=== PATIENT | female | born 1950 | race Hispanic/Latino ===

== ENCOUNTER 2019-05-09 17:32 | Inpatient (IN) | payer MEDICARE ==
[~2019-05-09] VITALS: Ht 160 cm; Wt 58.3 kg
[2019-05-09 17:00] VITALS: BP 135/60
--- NOTE | 2019-05-09 17:00 | NUR ---
Pt is a direct admit that arrived to the floor at this time. Pt arrive by wheelchair from Dr. Ray office. She is being admitted for right DFU. Pt is aox4 and able to verbalize but mostly armenian speaking. Denies any pain at this time. New IV started to left forearm 20g. Family at the bedside. Dr. Garcia will be attending and has been notified of pt arrival.
--- OUTSIDE RECORDS SUMMARY | 2019-05-09 17:34 | XMS REPORT ---
Author Author Admin, [place] Organization [facility] Address [address] [place] [address] Phone Allergies, Adverse Reactions, Alerts Allergy Name Reaction Description Start Date Severity Status Provider No Known Allergies Jessica Hendrickson REGIONAL DIRECTOR Conditions or Problems Problem Name Problem Code Onset Date Status Entry Date Provider Comment Standard Description Annotate Albuminuria 791.0 Active Jose Cortés MD Proteinuria Alkaline phosphatase, elevated 790.5 Active Jose Cortés MD Other nonspecific abnormal serum enzyme levels cellulitis, toe, right 681.10 Active Jose Cortés MD Cellulitis and abscess of toe, unspecified Diabetic nephropathy 250.40 Active Jose Cortés MD Diabetes mellitus with renal manifestations, type II or unspecified type, not stated as uncontrolled Eosinophilia 288.3 Active Jose Cortés MD Eosinophilia Leukocytosis 288.60 Active Jose Cortés MD Leukocytosis, unspecified Metabolic acidosis 276.2 Active Jose Cortés MD Acidosis Microcytic anemia 280.9 Active Jose Cortés MD Iron deficiency anemia, unspecified Thrombocytosis 238.71 Active Jose Cortés MD Essential thrombocythemia Diabetes mellitus type II, uncontrolled 250.00 Active Jose Cortés MD Diabetes mellitus without mention of complication, type II or unspecified type, not stated as uncontrolled Diabetic foot ulcer, great toe, right 707.15 Active Jose Cortés MD Ulcer of other part of foot Hypertension 401.9 Active Jose Cortés MD Unspecified essential hypertension Onychomycosis 110.1 Active Jose Cortés MD Dermatophytosis of nail Medication List Medication Instructions Start Date Stop Date Generic Name NDC Status Provider Patient Instruction AMOXICILLIN-POT CLAVULANATE 875-125 MG ORAL TABLET 1 tsp by mouth twice a day AMOXICILLIN-POT CLAVULANATE 88053469932 Active Jose Cortés MD Active BACTRIM DS 800-160 MG ORAL TABLET 2 tab by mouth twice a day TRIMETHOPRIM-SULFAMETHOXAZOLE 85047826519 Active Jose Cortés MD Active JANUMET 50-1000 MG ORAL TABLET 1 tablet twice a day SITAGLIPTIN- METFORMIN HCL 88353383093 Active Jose Cortés MD Active Vital Signs Date Name Value Unit Range Description blood pressure, diastolic, second observation 75 mm[Hg] BP page blood pressure, diastolic 75 mm[Hg] BP page blood pressure, systolic, second observation 156 mm[Hg] BP sys blood pressure, systolic 156 mm[Hg] BP sys height E&M 56.89 [in_us] Bdy height pulse rate E&M 87 /min Heart rate pulse rate #2 84 Heart rate respiratory rate E&M 20 /min Resp rate temperature E&M 97.9 [degF] Body temperature weight E&M 112.86 [lb_av] Weight Measured Diagnostic Results Date Name Value Unit Range Description Lab Report: CBC With Differential/Platelet, Comp. Metabolic Panel (14), ... - Chemistry very low density lipoproteins 24 mg/dL 5-40 chloride, serum 96 mmol/L 96-106 urea nitrogen, blood 23 mg/dL 8-27 Lab Report: CBC With Differential/Platelet, Comp. Metabolic Panel (14), ... - Hematology mean corpuscular hemoglobin concentration, RBC 32.1 G/DL % 31.5-35.7 erythrocyte (RBC) count 3.89 X10E6/UL 10*6/mm3 3.77-5.28 Lab Report: CBC With Differential/Platelet, Comp. Metabolic Panel (14), ... - Chemistry Absolute Neutrophils 6.8 X10E3/UL 10*3/uL 1.4-7.0 LDL cholesterol, serum 85 mg/dL 0-99 urea nitrogen/creatinine ratio, serum 25 12-28 Lab Report: CBC With Differential/Platelet, Comp. Metabolic Panel (14), ... - Hematology mean corpuscular volume, RBC 78 fL 79-97 Lab Report: CBC With Differential/Platelet, Comp. Metabolic Panel (14), ... - Chemistry HDL cholesterol, serum 50 mg/dL >39 Lab Report: CBC With Differential/Platelet, Comp. Metabolic Panel (14), ... - Hematology monocytes as percent of blood leukocytes 8 % Not Estab. Lab Report: CBC With Differential/Platelet, Comp. Metabolic Panel (14), ... - Chemistry creatinine, serum 0.91 mg/dL 0.57-1.00 albumin/globulin ratio, serum 0.9 1.2-2.2 cholesterol, serum 159 mg/dL 942-430 2604/08/03 creatinine, random, urine 76.3 mg/dL Not Estab. bilirubin, serum, total 0.3 mg/dL 0.0-1.2 Lab Report: CBC With Differential/Platelet, Comp. Metabolic Panel (14), ... - Hematology Eosinophil Absolute Count 1.3 X10E3/UL 10*3/uL 0.0-0.4 Lab Report: CBC With Differential/Platelet, Comp. Metabolic Panel (14), ... - Chemistry aspartate aminotransferase (SGOT), serum 15 U/L 0-40 Lab Report: CBC With Differential/Platelet, Comp. Metabolic Panel (14), ... - Hematology red blood cell distribution width 14.6 % 12.3-15.4 leukocyte count, blood 12.2 X10E3/UL 10*3/mm3 3.4-10.8 Lab Report: CBC With Differential/Platelet, Comp. Metabolic Panel (14), ... - Chemistry potassium, serum 4.2 mmol/L 3.5-5.2 immature granulocytes, percentage of total cells, blood 0 % Not Estab. albumin, serum 3.7 g/dL 3.6-4.8 Lab Report: CBC With Differential/Platelet, Comp. Metabolic Panel (14), ... - Hematology lymphocyte count, blood, automated 3.1 X10E3/UL 10*3/mm3 0.7-3.1 hematocrit, blood 30.5 % 34.0-46.6 Lab Report: CBC With Differential/Platelet, Comp. Metabolic Panel (14), ... - Chemistry sodium, serum 134 mmol/L 134-144 Lab Report: CBC With Differential/Platelet, Comp. Metabolic Panel (14), ... - Hematology neutrophils as percent of blood leukocytes 55 % Not Estab. basophils as percent of blood leukocytes 1 % Not Estab. Lab Report: CBC With Differential/Platelet, Comp. Metabolic Panel (14), ... - Chemistry carbon dioxide, venous blood 19 mmol/L 20-29 triglyceride, serum, fasting 122 mg/dL 0-149 calcium, serum 9.2 mg/dL 8.7-10.3 microalbumin/creatinine ratio, urine 1230.3 MG/G CREAT ug/mg 0.0-30.0 alanine aminotransferase (SGPT), serum 13 U/L 0-32 Lab Report: CBC With Differential/Platelet, Comp. Metabolic Panel (14), ... - Hematology mean corpuscular hemoglobin, RBC 25.2 pg 26.6-33.0 Office Visit: Acute Visit 68y F DM, diabetic foot wound - Chemistry blood glucose, fasting 136 mg/dL Lab Report: CBC With Differential/Platelet, Comp. Metabolic Panel (14), ... - Chemistry protein, total, serum 7.8 g/dL 6.0-8.5 alkaline phosphatase, serum 148 U/L 39-117 Lab Report: CBC With Differential/Platelet, Comp. Metabolic Panel (14), ... - Hematology hemoglobin, blood 9.8 g/dL 11.1-15.9 lymphocytes as percent of blood leukocytes 25 % Not Estab. Lab Report: CBC With Differential/Platelet, Comp. Metabolic Panel (14), ... - Chemistry hemoglobin A1C, blood, as % of total hemoglobin 9.0 % 4.8-5.6 Lab Report: CBC With Differential/Platelet, Comp. Metabolic Panel (14), ... - Genetics/fertility eGFR if 75 mL/min/1.73m2 >59 Lab Report: CBC With Differential/Platelet, Comp. Metabolic Panel (14), ... - Hematology basophil count, absolute 0.1 x10E3/uL 0.0-0.2 Lab Report: CBC With Differential/Platelet, Comp. Metabolic Panel (14), ... - Chemistry globulin, serum 4.1 1.5-4.5 Estimated Glomerular Filtration Rate (calc) 65 mL/min/1.73m2 >59 Lab Report: CBC With Differential/Platelet, Comp. Metabolic Panel (14), ... - Urinalysis microalbumin/total urine volume 938.7 mg/L Not Estab. Lab Report: CBC With Differential/Platelet, Comp. Metabolic Panel (14), ... - Hematology eosinophils as percent of blood leukocytes 11 % Not Estab. Lab Report: CBC With Differential/Platelet, Comp. Metabolic Panel (14), ... - Chemistry blood glucose, random 132 mg/dL 65-99 Lab Report: CBC With Differential/Platelet, Comp. Metabolic Panel (14), ... - Hematology monocyte count, blood, automated 0.9 X10E3/UL 10*3/uL 0.1-0.9 platelet count 579 X10E3/UL 10*3/mm3 150-450 Encounters Date Encounter Provider Code Facility 11:11:41 CDT New Patient Detailed - [id number] Jose Cortés MD CPT-66992 [facility] Procedures Code Procedure Name Date Entry Date Standard Description CPT-85363 Xray - Foot - 3 Views - InHouse 09:46:56 CDT CPT-09778 HEMOGLOBIN A1C - In House 11:11:41 CDT CPT-65814 Finger Stick Glucose 11:11:41 CDT CPT-12672 Handling of specimen for transfer 11:11:41 CDT CPT-36151 Venipuncture 11:11:41 CDT
[2019-05-09 17:41] VITALS: BP 135/60
[2019-05-09] MEDS ORDERED: PIPER-TAZ 3.375 GM 50 ML IV SCH (18:00)
[2019-05-09] MEDS ORDERED: ACETAMINOPHEN 325 MG TAB PO PRN (18:30)
[2019-05-09] MEDS ORDERED: HYDROCODONE/APAP 5MG-325MG TAB PO PRN (18:30)
--- NOTE | 2019-05-09 19:00 | NUR ---
received report from day nurse. patient is resting comfortably in the bed. bed is in the lowest position and call santos is within reach. will continue to monitor patient.
[2019-05-09 19:11] LABS: BASOPHILS # (AUTO) 0.1 (0.0-0.1); BASOPHILS % 0.8 % (0.0-1.0); EOSINOPHILS # (AUTO) 1.1 (0.0-0.4); EOSINOPHILS % 8.4 % (0.0-6.0); HEMATOCRIT 29.1 % (34.2-44.1); HEMOGLOBIN 9.4 g/dL (12.0-16.0); LYMPHOCYTES # (AUTO) 2.8 (1.0-3.2); LYMPHOCYTES % 21.4 % (18.0-39.1); MEAN CORPUSCULAR HEMOGLOBIN 24.7 pg (28-32); MEAN CORPUSCULAR HGB CONC 32.3 g/dL (31-35); MEAN CORPUSCULAR VOLUME 76.4 fL (81-99); MONOCYTES # (AUTO) 1.2 (0.2-0.8); MONOCYTES % 8.9 % (4.4-11.3); NEUTROPHILS # (AUTO) 7.7 (2.1-6.9); NEUTROPHILS % 59.8 % (38.7-80.0); PLATELET COUNT 548 x10e3/uL (140-360); RED BLOOD COUNT 3.81 x10e6/uL (3.6-5.1); RED CELL DISTRIBUTION WIDTH 14.5 % (11.7-14.4)
[2019-05-09] MEDS ORDERED: DEXTROSE 50% SYRINGE 50 ML IV PRN (19:15)
[2019-05-09] MEDS ORDERED: JANUMET 50-1,01 EACH PO (19:25)
[2019-05-09 19:40] LABS: ALBUMIN/GLOBULIN RATIO 0.5 (0.8-2.0); ANION GAP 20.2 mmol/L (8-16); CALCIUM 9.9 mg/dL (8.4-10.2); CREATININE, SERUM 1.56 mg/dL (0.57-1.11); POTASSIUM 4.2 mmol/L (3.5-5.1)
[2019-05-09 19:56] LABS: CHOL/HDL RATIO 3.7 (3.0-3.6)
[2019-05-09 20:00] VITALS: BP 157/67
[2019-05-09 20:32] VITALS: BP 157/67
[2019-05-09] MEDS: INSULIN LISPRO 100 UNIT/1 ML 3ML VIAL SQ SCH (20:36)
[2019-05-09] MEDS ORDERED: SODIUM CHLORIDE 0.9% 250ML 250 ML ONE (20:43)
[2019-05-09] MEDS: PIPER-TAZ 3.375 GM 50 ML IV SCH (20:56)
[2019-05-09] MEDS: VANCOMYCIN 1GM/NS 250 ML 250 ML IV SCH (21:47)
[2019-05-10] VITALS (10 sets, daily range): BP systolic 126–179; BP diastolic 61–82
--- NOTE | 2019-05-10 02:12 | History and Physical ---
This is a 68-year-old female with a history of diabetes, comes in with diabetic foot ulcer, direct admission from Podiatry for possible debridement. HISTORY OF PRESENTING ILLNESS: Ms. Erma De Guzman who is a 68-year-old female with history of diabetes, was usual state of health until about a month ago, the patient started to have a callus, which she picked on and it became into an ulcer. The patient was seen by her primary care physician, who gave the patient Augmentin about a week ago and the patient continue with that, but the diabetic foot ulcer was getting worse and the patient was seen by and sent to the emergency room for Infectious Disease care and also for possible uncontrolled diabetes and PUD. PAST MEDICAL HISTORY: As mentioned about diabetes mellitus. MEDICATIONS: The only medication she takes is Janumet. No other medications seen. PAST SURGICAL HISTORY: Noncontributory. ALLERGIES: NO DRUG ALLERGIES. REVIEW OF SYSTEMS: Negative for chest pain. No shortness of breath. No nausea, vomiting, or diarrhea. No constipation. No rectal bleeding. No hematochezia. Positive for pain and tenderness in the right foot. The patient has no diplopia, no blurry vision, and no paresthesias or hyperesthesias. PHYSICAL EXAMINATION: GENERAL: The patient is alert and oriented x3, in no acute distress, eating comfortably. VITAL SIGNS: Temperature is 96.7, pulse of 89, respirations of 17, blood pressure is 135/60, and pulse oximetry of 100%. HEENT: Normocephalic and atraumatic. Pupils are reactive to light and accommodation. CVS: S1, S2 normal. Regular rate and rhythm. LUNGS: Clear to auscultation bilaterally. ABDOMEN: Nontender and nondistended. LOWER EXTREMITIES: Left lower extremity, good peripheral pulses. Right lower extremity, slight edema present, otherwise bandaged. The presence of the ulcer is on the right great toe dorsally. Peripheral pulses in the right side. Dorsalis pedis cannot be felt at this time, but posterior tibial strong pulses present. LABORATORY VALUES: None done at this point of time. CBC and blood cultures x2 has been done. Hemoglobin A1c is done. We will go and order a lipid panel on her [address] Moody and also Infectious Disease has been ordered. The patient is currently on hydrocodone for pain control, acetaminophen for fever control, vancomycin and Zosyn have been started q.12 and q.6 hours. Further recommendation per clinical course. We will continue to monitor the patient. A1c, lipids, and also kidney functions will be assessed. We will continue to monitor the patient along with consultants and further recommendation per clinical course. MD CRISTY Hercules/NEIL /[id number]
[2019-05-10] MEDS: PIPER-TAZ 3.375 GM 50 ML IV SCH ×3 (02:35→12:58)
[2019-05-10 05:34] LABS: BASOPHILS # (AUTO) 0.1 (0.0-0.1); BASOPHILS % 0.9 % (0.0-1.0); EOSINOPHILS % 8.7 % (0.0-6.0); HEMATOCRIT 24.8 % (34.2-44.1); LYMPHOCYTES # (AUTO) 2.2 (1.0-3.2); LYMPHOCYTES % 19.1 % (18.0-39.1); MEAN CORPUSCULAR HEMOGLOBIN 24.6 pg (28-32); MEAN CORPUSCULAR HGB CONC 32.3 g/dL (31-35); MEAN CORPUSCULAR VOLUME 76.3 fL (81-99); MONOCYTES # (AUTO) 0.9 (0.2-0.8); MONOCYTES % 7.8 % (4.4-11.3); NEUTROPHILS # (AUTO) 7.2 (2.1-6.9); PLATELET COUNT 424 x10e3/uL (140-360); RED BLOOD COUNT 3.25 x10e6/uL (3.6-5.1); RED CELL DISTRIBUTION WIDTH 14.3 % (11.7-14.4)
[2019-05-10 05:57] LABS: ANION GAP 15.6 mmol/L (8-16); CREATININE, SERUM 1.4 mg/dL (0.57-1.11); POTASSIUM 4.6 mmol/L (3.5-5.1)
--- NOTE | 2019-05-10 06:54 | NUR ---
report given to day nurse. patient is resting comfortably in bed. bed is in lowest position and call light is within reach.
[2019-05-10] MEDS: INSULIN LISPRO 100 UNIT/1 ML 3ML VIAL SQ SCH ×4 (07:30→20:51)
--- NOTE | 2019-05-10 07:45 | NUR ---
Pt received in bed. aox4 and able to verbalize needs. Denies any pain at this time. Dressing to right foot is dry and intact. Pt is mostly japanese speaking.
[2019-05-10] MEDS: VANCOMYCIN 1GM/NS 250 ML 250 ML IV SCH (08:39)
--- NOTE | 2019-05-10 08:50 | NUR ---
Received call from Dr. Patel and receive orders to obtain informed consent for debridement to right foot ulcer. Procedure will be done on 05/11/19 at 0700. Also received orders for CXR.
--- NOTE | 2019-05-10 11:01 | Diagnostic Imaging Report ---
EXAMINATION: CHEST SINGLE (PORTABLE) INDICATION: Infection COMPARISON: None FINDINGS: LINES/TUBES:None LUNGS:The lungs are well-inflated. No focal consolidation or pulmonary edema. PLEURA:No pleural effusion or pneumothorax. MEDIASTINUM:The cardiomediastinal silhouette appears normal in size and shape. Atherosclerotic calcifications of the thoracic aorta. BONES/SOFT TISSUES:Degenerative/posttraumatic changes of the partially visualized left proximal humerus. ABDOMEN:No free air under the diaphragm. IMPRESSION: No focal pneumonia or pulmonary edema. Signed by: Jesika Tavarez MD on 05/10/2019 10:58 AM
--- NOTE | 2019-05-10 14:48 | Diagnostic Imaging Report ---
TECHNIQUE: Magnetic resonance imaging of the RIGHT foot was performed WITHOUT injected contrast. HISTORY: Pain COMPARISON: None available. DISCUSSION: Soft tissue ulceration of the level of the interphalangeal joint of the hallux and metatarsophalangeal joint of the hallux with ill-defined soft tissue abscess surrounding the adjacent osseous structures. Abscess extends over the proximal phalanx of the second toe. Bone marrow edema and T1 replacement throughout the phalanges of the hallux. Mild subcortical bone marrow edema involving the first and second metatarsals and second proximal phalanx. Generalized soft tissue swelling and edema of the foot. IMPRESSION: 2 regions of soft tissue ulceration with sinus tract and soft tissue abscess of the distal forefoot. Osteomyelitis of the phalanges of the hallux with interphalangeal joint septic arthritis. Probable osteomyelitis of the first and second metatarsal heads and second proximal phalanx. Signed by: Dr. Tomer Murdock M.D. on 05/10/2019 2:45 PM
--- NOTE | 2019-05-10 16:24 | NUR ---
WOUND CARE NURSE INITIAL CONSULTATION. 68 YEAR OLD FEMALE ADMITTED TO [facility] WITH WAGNERS3 DIABETIC FOOT ULCER, PVD AND CELLULITIS. HEAD TO TOE SKIN ASSESSMENT PERFORMED TODAY. MULTIPLE DIABETIC FOOT ULCERS TO RIGHT 1ST MET HEAD AND RIGHT HALLUX THEY ARE PROBABLY CONNECTED, UNABLE TO PROBE DUE TO PAIN. ULCERS MEASURED TOGETHER ARE APPROXIMATELY 4.2X3X1.3CM. 100% SLOUGH. MODERATE PURULENT DRAINAGE IS PRESENT. PALPABLE PULSES. CELLULITIS AND EDEMA IS ALSO PRESENT. SPOKE WITH DR. JACOBSON, PT WILL UNDERGO SURGICAL DEBRIDEMENT TOMORROW. ORDERS TO APPLY BETADINE WET TO DRY DRESSING TODAY. PT IS AMBULATORY AND HAS PILLOW SUSPENSIONS IN PLACE. LABS: WBC: 11.43 HGBA1C: 8.5 GLUCOSE: 11 ALB: 3.0 BLOOD AND WOUND CX RESULTS ARE PENDING. WILL CONTINUE TO FOLLOW UP WITH PT AFTER SURGERY. Addendum: 05/10/19 at 1633 by Shawanda Patrick RN Amended: Links added.
[2019-05-10] MEDS: CEFEPIME 1GM/NS 0.9% 50 ML 50 ML IV SCH (16:59)
--- NOTE | 2019-05-10 17:17 | Consultation ---
DATE OF CONSULTATION: REASON FOR CONSULTATION: Infection of the foot, failing medical treatment. HISTORY OF PRESENT ILLNESS: This patient, who is a 68-year-old very pleasant female with history of diabetes mellitus, history of neuropathy, history of chronic kidney disease, history of anemia of chronic disease, comes into the hospital because she have a right foot ulcer, which she has been dealing with for at least a month. She took several courses of oral antibiotic without any improvement. There is redness and swelling. She does have a foot also affecting her right big toe. The patient is being admitted for IV antibiotic and possible surgical debridement. The patient has no complaints at the present time. Her family at the bedside. REVIEW OF SYSTEMS: At the present time; HEENT: Negative. PULMONARY: Negative. CARDIAC: Negative. : Negative. GI: Negative. SKIN: There is no other rash. A 14-point system reviewed with the patient, all negative. Her son at the bedside provide also additional information. MEDICATION LIST: Reviewed. She is currently on vancomycin, Zosyn, acetaminophen, and insulin. SOCIAL HISTORY: There is no smoking, drug abuse, or alcohol abuse. FAMILY HISTORY: Diabetes mellitus. LABORATORY DATA: White count is 11.4, hemoglobin 8, and platelets 424. Her BUN 31, creatinine 1.40. PHYSICAL EXAMINATION: GENERAL: She is currently alert, oriented, does not seem to be in acute distress. VITAL SIGNS: Stable, currently afebrile. HEENT: Normocephalic, not icteric. NECK: Supple. No JVD. No carotid bruits. No thyromegaly. CHEST: Clear bilateral. COR: S1, S2. No murmur. ABDOMEN: Soft. EXTREMITIES: The foot, there is redness and swelling. There is edema. There is an ulcer noted on the big toe. The ulcer is deep subcutaneous tissue. IMPRESSION: 1. Infection of the foot, concerned about osteomyelitis. Concerned about peripheral vascular disease. Our recommendation to change her vancomycin to 1 g q.24. We will start cefepime 1 g q.12. Discontinue Zosyn. Obtain vancomycin trough with the 3rd dose. Obtain Vascular workup. Obtain MRI of the foot without contrast to rule out osteo. 2. Chronic kidney disease. 3. Anemia. Workup per Internal Medicine. 4. We will follow with you. MD GIA Pires/NEIL /[id number]
[2019-05-10] MEDS ORDERED: CEFEPIME HCL 1 GM VIAL IV SCH (18:00)
--- NOTE | 2019-05-10 18:32 | Progress Note ---
DATE: SUBJECTIVE: The patient is a 68-year-old female with a history of foot ulcer. The patient is currently on IV antibiotics. Currently has no symptoms. No pain. Wound Care under consult at this time. OBJECTIVE: VITAL SIGNS: Temperature is 97.4, pulse of 93, respirations 17, and blood pressure is 137/62. HEENT: Normocephalic and atraumatic. Pupils are reactive to light and accommodation. CVS: S1 and S2 normal. Regular rate and rhythm. ABDOMEN: Nontender and nondistended. EXTREMITIES: No clubbing, no cyanosis, and no edema. The patient's lower extremity with good pulses. Right lower extremity with ulceration on the great toe. Peripheral pulses are present. Dorsalis pedis present. There is a moderate amount of eschar present there too. LABORATORY VALUES: WBC is 11.43, hemoglobin of 8, and hematocrit of 24.8. Sodium is 128, potassium is 4.6, BUN of 31, and creatinine of 1.40. ASSESSMENT: 1. Right lower extremity diabetic foot ulcer. 2. Uncontrolled diabetes. 3. Hypertension. 4. Hyperlipidemia. 5. Leukocytosis. 6. Chronic kidney disease. 7. Hyponatremia at this time. PLAN: Continue monitoring the lytes. Leukocytosis to be monitored. Continue on antibiotics. The patient is currently on vancomycin and cefepime. She is currently on renal doses. Further recommendation and clinical course, we will continue to monitor the patient and consultants are on board. MD CRISTY Hercules/MODL /[id number]
--- NOTE | 2019-05-10 20:30 | NUR ---
patients blood pressure is elevated. MD notified. received new order for clonidine 0.1mg prn q6 hours for elevated blood pressure. Upon entering room with medication, patients son states he does not want his mother to take the blood pressure medication. son states if mother takes the blood pressure medication she will get more worried and anxious about her condition. son was educated on the importance of controlling blood pressure. Son understands importance of keeping blood pressure under control. MD notified of sons response to blood pressure medication. Will continue to monitor patients blood pressure.
--- NOTE | 2019-05-10 20:43 | NUR ---
patients blood pressure is 179/82. paged. awaiting call back from physician.
[2019-05-11] VITALS (8 sets, daily range): BP systolic 120–177; BP diastolic 55–79
--- NOTE | 2019-05-11 01:43 | Consultation ---
DATE OF CONSULTATION: 05/10/2019 Cardiology Consult Note REASON FOR CONSULT: Right lower extremity ulcer. CHIEF COMPLAINT: Right lower extremity ulcer. HISTORY OF PRESENT ILLNESS: The patient is a 68-year-old female with history of diabetes, hypertension, hyperlipidemia, and CAD, who presents with cellulitis and ulcer of her right lower extremity. Arterial Doppler showed [id number] severe PAD in her right lower extremity. The patient denies any previous catheterizations or procedure, otherwise just wants some wound care and wants to go home, is not wanting to stay in the hospital. PAST MEDICAL HISTORY: 1. Hypertension. 2. Hyperlipidemia. 3. Diabetes. SOCIAL HISTORY: She does not smoke, drink, or abuse drugs. FAMILY HISTORY: Noncontributory. MEDICATIONS: Please see MAR. OBJECTIVE: VITAL SIGNS. Temperature afebrile, hemodynamically stable, saturating 98% on room air. GENERAL: Middle-aged female, in no acute distress. CARDIOVASCULAR: Regular rate and rhythm. No murmurs, rubs, or gallops. LUNGS: Clear to auscultation bilaterally. ABDOMEN: Soft, nontender, and nondistended. NEURO AND PSYCH: Alert and oriented to person, place, and time. Normal affect. Right lower extremity bandage in place. Has ulcer on her right great toe and foot. INPATIENT MEDICATIONS: Reviewed. LABORATORY DATA: Reviewed. TELEMETRY DATA: Reviewed. ASSESSMENT AND PLAN: 1. Right diabetic foot ulcer. 2. Peripheral arterial disease with critical limb ischemia. PLAN: Had a long discussion with the patient and her son regarding peripheral angiography and intervention to help with wound healing. However, they are very reluctant and said that they do not want any procedures, they just want some wound care and want to go home. I explained to the patient the risk of amputation and nonhealing chronic diabetic wound including sepsis and and they said they understand, however, they are not interested in doing any procedures. We will sign off at this point. Please call back if they change their mind regarding getting peripheral angiography and intervention for right lower extremity. Thank you for this consult. MD KARINE Batista/NEIL /[id number]
[2019-05-11] MEDS: CEFEPIME 1GM/NS 0.9% 50 ML 50 ML IV SCH ×2 (05:13→17:05)
[2019-05-11 05:59] LABS: BASOPHILS # (AUTO) 0.1 (0.0-0.1); BASOPHILS % 0.7 % (0.0-1.0); EOSINOPHILS # (AUTO) 1.8 (0.0-0.4); EOSINOPHILS % 14.4 % (0.0-6.0); HEMATOCRIT 26.7 % (34.2-44.1); HEMOGLOBIN 8.7 g/dL (12.0-16.0); LYMPHOCYTES # (AUTO) 2.7 (1.0-3.2); LYMPHOCYTES % 21.5 % (18.0-39.1); MEAN CORPUSCULAR HEMOGLOBIN 25.1 pg (28-32); MEAN CORPUSCULAR HGB CONC 32.6 g/dL (31-35); MEAN CORPUSCULAR VOLUME 76.9 fL (81-99); MONOCYTES % 8.3 % (4.4-11.3); NEUTROPHILS # (AUTO) 6.8 (2.1-6.9); NEUTROPHILS % 54.5 % (38.7-80.0); PLATELET COUNT 460 x10e3/uL (140-360); RED BLOOD COUNT 3.47 x10e6/uL (3.6-5.1); RED CELL DISTRIBUTION WIDTH 14.4 % (11.7-14.4)
[2019-05-11 06:16] LABS: ANION GAP 15.4 mmol/L (8-16); CALCIUM 9.4 mg/dL (8.4-10.2); CREATININE, SERUM 1.29 mg/dL (0.57-1.11); POTASSIUM 4.4 mmol/L (3.5-5.1)
[2019-05-11] MEDS ORDERED: BACITRACIN 50,000 UNIT VIAL ONE ×2 (06:24→06:45)
[2019-05-11] MEDS ORDERED: BUPIVACAINE HCL 0.5% INJ 30 ML VIAL INJ ONE (06:24)
--- NOTE | 2019-05-11 06:30 | NUR ---
patient has been transported to operating room for planned procedure on right foot. patient left unit awake and talking in stretcher accompanied by 2 operating room staff members.
--- NOTE | 2019-05-11 06:52 | NUR ---
RECEIVED REPORT FROM PIG MACHINE CRANE OPERATOR NURSE. PATIENT IS CURRENTLY IN THE OR FOR PROCEDURE.
[2019-05-11] MEDS: INSULIN LISPRO 100 UNIT/1 ML 3ML VIAL SQ SCH ×4 (07:30→20:03)
--- NOTE | 2019-05-11 08:04 | NUR ---
PATIENT BACK TO ROOM FROM OR AT THIS TIME.
[2019-05-11] MEDS: CLONIDINE HCL 0.1 MG TAB PO PRN (08:30)
[2019-05-11 08:38] LABS: BAND NEUTROPHILS % (MANUAL) 2 %; EOSINOPHILS % (MANUAL) 13 % (0-7); LYMPHOCYTES % (MANUAL) 14 % (19-48); MONOCYTES % (MANUAL) 8 % (3.4-9.0); NEUTROPHILS % (MANUAL) 61 % (40-74)
[2019-05-11 08:39] LABS: ANISOCYTOSIS SLIGHT; PLATELET ESTIMATE SLIGHTLY INCREASED; PLATELET MORPHOLOGY COMMENT NORMAL; POIKILOCYTOSIS SLIGHT; RBC MORPHOLOGY COMMENT NORMAL
[2019-05-11] MEDS: VANCOMYCIN 1GM/NS 250 ML 250 ML IV SCH (09:03)
--- NOTE | 2019-05-11 10:22 | NUR ---
EDUCATED ABOUT IMM, SIGNED, FILED IN CHART, WITH COPY LEFT WITH FAMILY AT BEDSIDE.
--- NOTE | 2019-05-11 11:46 | Progress Note ---
DATE: SUBJECTIVE: The patient is a 68-year-old female, who comes in with right lower extremity diabetic foot ulcer. The patient is currently scheduled to be taken down to the OR for debridement. Currently on cefepime and vancomycin. The patient is also getting rosiglitazone for her diabetes. The patient is also on insulin sliding scale. No complaints noted by the family of the patient. OBJECTIVE: VITAL SIGNS: Blood pressure is 151/67, temperature is 97.6. The patient's blood pressure also elevated to 165/71. No blood pressure medicine has been given to the patient. This has been raised in concern with the family. The patient's family does not want to have blood pressure medications at this time. HEENT: Normocephalic and atraumatic. Pupils are reactive to light and accommodation. CVS: S1 and S2 normal. Regular rate and rhythm. ABDOMEN: Nontender and nondistended. EXTREMITIES: Right lower extremity in a bandage. Ulcerations seen from yesterday and is scheduled for debridement. LABORATORY VALUES: Today's white count is 12,000, hemoglobin of 8.7, and hematocrit of 26.7. Chemistry; sodium of 134, potassium of 4.4, BUN of 28, creatinine of 1.29. Microbiology, no growth. Wound culture, preliminary culture in progress re-incubation and blood cultures negative so far. ASSESSMENT: 1. Right lower extremity diabetic foot ulcer. 2. Uncontrolled diabetes. 3. Hypertension. 4. Hyperlipidemia. 5. Leukocytosis. 6. Anemia of chronic disease. 7. Chronic kidney disease. PLAN: Plan for debridement today. Continue with IV antibiotics. PICC line will be needed and Dr. Wilson was on consult. Further recommendation per clinical course. We will continue to monitor the patient along with consultants including Dr. Patel for Podiatry. MD CRISTY Hercules/MODL /[id number]
--- NOTE | 2019-05-11 12:01 | Operative Report ---
DATE OF PROCEDURE: SURGEON: Beronica Jordan DPM PREOPERATIVE DIAGNOSES: 1. Right diabetic foot ulcer, grade 3. 2. Septic joint. 3. Diabetes with neuropathy. 4. Severe peripheral vascular disease. POSTOPERATIVE DIAGNOSES: 1. Right diabetic foot ulcer, grade 3. 2. Septic joint. 3. Diabetes with neuropathy. 4. Severe peripheral vascular disease. PROCEDURES: 1. Incision and debridement to bone. 2. Irrigation of the septic joint, which was sensitivities of the IPJ. DIRECTOR OF VOCATIONAL GUIDANCE: None. ANESTHESIA: MAC with a local. ESTIMATED BLOOD LOSS: Less than 10 mL. MATERIALS: Pulse hand slitter. COMPLICATIONS: None. PROCEDURE IN DETAIL: Under mild sedation, the patient was brought to the operating room, placed on the operating table in supine position. Following IV sedation, anesthesia was obtained with a MAC anesthetic and a local block into the right foot. The foot scrubbed, prepped, and draped in the usual aseptic manner. Attention was then directed to the IPJ joint and the MPJ joint and the interspace of the 1st, where linear incision was made overlying the area of the abscess. The incision was deepened down to the level of the bone, it was noted to be purulent coming from the IPJ and the ulcers that was tracking down into the 2nd MPJ. At this point, utilizing the combination of a #15 blade, a bone rongeur and a curette, all nonviable tissue was removed. Cultures and sensitivity were taken after irrigation of the IPJ of the bone. Utilizing pressure irrigation, irrigation was performed to the areas of abscesses after they were drain with copious irrigation with bacitracin. Clean dressing was applied consisting of Betadine. Wet-to-dry, 4x4s, Kerlix, and an Johnnie bandage. The patient tolerated the procedure, she will be readmitted back into the hospital. At this point, the prognosis is poor. She denied treatment from Vascular. She had a minimal vascularity to the lower extremity. I discussed with them that if the wound does not respond, she is going to need a proximal amputation because she is not going to heal a distal amputation secondary to the comorbidities and vascularities. I will continue to follow. Beronica Jordan DPM ER/MODL /[id number]
--- NOTE | 2019-05-11 14:06 | Consultation ---
DATE OF CONSULTATION: REASON FOR CONSULTATION: This is a patient, who came into my office on Thursday May 09, 2019, for evaluation of a wound. She said she has had the wound for over a couple of months. She does not have a PCP. She has been going to different clinics and obtaining oral antibiotic. When she presented to my office, the wound was draining, there was malodor. PAST MEDICAL HISTORY: Diabetes mellitus, history of noncompliance, PVD, and neuropathy. PAST SURGICAL HISTORY: Denies. MEDICATIONS: Please see MAR. Of interest to this consult are cefepime and vancomycin. ALLERGIES: NO KNOWN ALLERGIES. REVIEW OF SYSTEMS: Ulcer to the right foot to the joint. LABORATORY DATA: Her white blood count is 12.49, is trending down, she started at 12.90. The wound cultures are growing with the preliminary. The blood cultures are negative at 24 hours, they are also preliminary. The MRI is positive for two regions of distal ulcerations with sinus tracts and soft tissue abscess at the distal forefoot, osteomyelitis of the phalanges of the hallux with interphalangeal joint and septic arthritis, probable osteomyelitis of the 1st and 2nd metatarsal heads and 2nd IPJ, and proximal phalanx. PHYSICAL EXAMINATION: Pedal pulses not palpable. Capillary filling time is delayed. Skin is thin, shiny, and atrophic. There is no pedal hair growth. There is full-thickness ulcer to the medial aspect of the IPJ and another one to 1st MPJ. The 3rd ulcer is at the lateral aspect of the IPJ and at the dorsal aspect of the 2nd MPJ. The ulcers are down to the bone, they draining purulent, erythema, and edema. The erythema and edema goes to about the mid foot. Protective threshold is absent. 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 ASSESSMENT: 1. Diabetic foot ulcer, grade 3. 2. Septic joint IPJ. 3. Diabetes with neuropathy and peripheral vascular disease. 4. History of noncompliance. PLAN: I discussed treatment with the patient. We discussed with Surgery to irrigate that joint. She is scheduled for surgery today, she has been n.p.o. I also reviewed with them Vascular consult, they have denied Vascular at this point. I have discussed with them that according to the report, she has compromised vascularity right to below the knee. She has refused intervention, but without intervention she has a very high risk for proximal amputation and I have discussed this with them in detail today. I discussed with the son and the patient states that at this point, they really do not want to do anything, they just want to do the local wound care, but they are going to think about it over the weekend. If this wound does not respond, she is going to need a proximal amputation and distal amputation when healed secondary to the poor vascularity and comorbidities. She is on IV antibiotics and I will continue to follow. LACIE Fitzpatrick/NEIL /[id number]
[2019-05-11] MEDS ORDERED: LIDOCAINE HCL 2% LOCAL INJ 5 ML SDV VIAL INJ ONE (18:37)
[2019-05-11] MEDS ORDERED: PROPOFOL IV EMULSION 10 MG/ML 20 ML VIAL ONE (18:37)
[2019-05-11] MEDS ORDERED: MIDAZOLAM HCL 2 MG/2 ML VIAL ONE (18:56)
[2019-05-11] MEDS ORDERED: FENTANYL CITRATE/PF 100MCG/2 ML INJ ONE (18:56)
--- NOTE | 2019-05-11 18:59 | NUR ---
REPORT GIVEN TO ONCOMING NURSE. WALKING ROUNDS DONE. PATIENT IS SITTING UP IN CHAIR. NO ACUTE DISTRESS NOTED. CALL LIGHT WITHIN REACH. BED IN THE LOWEST POSITION.
[2019-05-12] VITALS (7 sets, daily range): BP systolic 117–173; BP diastolic 58–78
[2019-05-12] MEDS: CEFEPIME 1GM/NS 0.9% 50 ML 50 ML IV SCH ×2 (05:06→17:08)
[2019-05-12 06:26] LABS: BASOPHILS # (AUTO) 0.1 (0.0-0.1); BASOPHILS % 0.6 % (0.0-1.0); EOSINOPHILS # (AUTO) 1.8 (0.0-0.4); EOSINOPHILS % 12.9 % (0.0-6.0); HEMATOCRIT 26.4 % (34.2-44.1); HEMOGLOBIN 8.4 g/dL (12.0-16.0); LYMPHOCYTES # (AUTO) 2.6 (1.0-3.2); LYMPHOCYTES % 18.7 % (18.0-39.1); MEAN CORPUSCULAR HEMOGLOBIN 24.6 pg (28-32); MEAN CORPUSCULAR HGB CONC 31.8 g/dL (31-35); MEAN CORPUSCULAR VOLUME 77.4 fL (81-99); MONOCYTES % 7.3 % (4.4-11.3); NEUTROPHILS # (AUTO) 8.4 (2.1-6.9); NEUTROPHILS % 59.8 % (38.7-80.0); PLATELET COUNT 439 x10e3/uL (140-360); RED BLOOD COUNT 3.41 x10e6/uL (3.6-5.1); RED CELL DISTRIBUTION WIDTH 14.3 % (11.7-14.4)
[2019-05-12 06:52] LABS: ANION GAP 13.4 mmol/L (8-16); BLOOD UREA NITROGEN 24 mg/dL (7-26); BUN/CREATININE RATIO 27 (6-25); CARBON DIOXIDE 22 mmol/L (22-29); CHLORIDE 101 mmol/L (98-107); EST GLOMERULAR FILTRATION RATE > 60 ML/MIN (60-); GLUCOSE 108 mg/dL (74-118); POTASSIUM 4.4 mmol/L (3.5-5.1); SODIUM 132 mmol/L (136-145)
--- NOTE | 2019-05-12 06:56 | NUR ---
RECEIVED PATIENT RESTING IN BED. NO ACUTE DISTRESS NOTED. DENIES PAIN OR DISCOMFORT AT THIS TIME. CALL LIGHT WITHIN REACH. BED IN THE LOWEST POSITION.
[2019-05-12 07:05] LABS: ANISOCYTOSIS SLIGHT; EOSINOPHILS % (MANUAL) 16 % (0-7); LYMPHOCYTES % (MANUAL) 21 % (19-48); MICROCYTOSIS SLIGHT; MONOCYTES % (MANUAL) 3 % (3.4-9.0); NEUTROPHILS % (MANUAL) 59 % (40-74); RBC MORPHOLOGY COMMENT ABNORMAL
[2019-05-12 07:06] LABS: PLATELET ESTIMATE SLIGHTLY INCREASED; PLATELET MORPHOLOGY COMMENT NORMAL
[2019-05-12] MEDS: INSULIN LISPRO 100 UNIT/1 ML 3ML VIAL SQ SCH ×4 (07:30→20:02)
[2019-05-12] MEDS: SODIUM CHLORIDE 0.9% 1000ML 1,000 ML IV SCH ×2 (07:35→20:03)
--- NOTE | 2019-05-12 07:36 | Progress Note ---
DATE: SUBJECTIVE: The patient is status post incision and debridement to the bone and irrigation of septic joint with Podiatry. Currently asymptomatic. Pain is controlled. No chest pains. No shortness of breath. No nausea, vomiting, or diarrhea. The patient went well through the night without any problems. OBJECTIVE: VITAL SIGNS: Temperature is 97.8, pulse of 92, respirations of 16, and blood pressure is 134/74. HEENT: Normocephalic and atraumatic. Pupils are reactive to light and accommodation. CVS: S1 and S2 normal. Regular rate and rhythm. EXTREMITIES: Right lower extremity is in bandage. The patient has good peripheral pulses. LABORATORY VALUES: 1. Gram stain shows Staph aureus, moderate. 2. White count of 14,000, hemoglobin of 8.4, and hematocrit of 26.4. Chemistry shows sodium 132, potassium is 4.4. 3. Microbiology as mentioned staph aureus. MEDICATIONS: The patient is on cefepime, vancomycin, and insulin for sliding scale. ASSESSMENT AND PLAN: 1. Plan is to continue on antibiotics. The patient needs an LTAC at this time, the patient is refusing to go to an LTAC. The patient will need IV antibiotics, this has been reinstated to the family and to the patient and they will think about it, also cellulitis and septic joint. 2. Uncontrolled diabetes mellitus with neuropathy. 3. Hyperlipidemia. 4. Leukocytosis. 5. Chronic kidney disease. 6. Anemia of chronic disease. PLAN: Continue with IV antibiotics. DVT prophylaxis with SCDs will be done. Further recommendation per clinical course. We will discuss with the family and further care and plan for the patient. MD CRISTY Hercules/ELVIAL /[id number]
[2019-05-12] MEDS: VANCOMYCIN 1GM/NS 250 ML 250 ML IV SCH (08:00)
[2019-05-12] MEDS: CLONIDINE HCL 0.1 MG TAB PO PRN (11:22)
--- NOTE | 2019-05-12 11:30 | NUR ---
PATIENT REFUSING INSULIN.
--- NOTE | 2019-05-12 14:30 | NUR ---
PATIENT REFUSING MD NORAH NOTIFIED.
--- NOTE | 2019-05-12 17:49 | NUR ---
PAGED DR. GRANDA TO ASK ABOUT WHEN DRESSING WILL BE OPEN DUE TO PATIENT ASKING. DR. STEARNS CALLED BACK AND STATED TO WAIT UNTIL DR. GRANDA ROUNDS ON TUESDAY AND ASK HER THEN.
--- NOTE | 2019-05-12 18:03 | Progress Note ---
DATE: SUBJECTIVE: Ms. De Guzman is doing well. No complaints. REVIEW OF SYSTEMS: HEENT: Negative. PULMONARY: Negative. CARDIAC: Negative. : Negative. Her son is at the bedside. PHYSICAL EXAMINATION: GENERAL: She is currently alert and oriented, does not seem to be in acute distress. VITAL SIGNS: Stable, currently afebrile. HEENT: Normocephalic, not icteric. NECK: Supple. No JVD. No lymphadenopathy. No thyromegaly. CHEST: Clear bilateral. HEART: S1 and S2. No S3, S4, or murmur. ABDOMEN: Soft. Bowel sounds present. No tenderness. EXTREMITIES: No edema. The foot dressing is dry. LABORATORY DATA: Her cultures showing Staph aureus and E coli from the 7. The E coli was pretty much pansensitive and the staph was also MSSA. MEDICATIONS: She is on vancomycin and cefepime. IMPRESSION: 1. Osteomyelitis of the foot. 2. Diabetes mellitus. 3. The patient is refusing to go to an LTAC or SNF. The patient would like to go home. However, she cannot afford her IV antibiotics. She would like to go home with oral antibiotic, even though she may end up losing her leg, she understands that. 4. Diabetes mellitus with neuropathy. 5. Hyperlipidemia. 6. Chronic kidney disease. 7. Anemia of chronic disease. I am going to wait on the of Staph aureus cultures, which is coming from the , still sensitive pending before I change her antibiotic. Discussed with the son at length. MD GIA Pires/NEIL /[id number]
--- NOTE | 2019-05-12 18:58 | NUR ---
Report given to oncoming nurse. Walking rounds done. Patient is resting in bed. No acute distress noted. Denies pain or discomfort at this time. Call light within reach. Bed in the lowest position.
[2019-05-13] VITALS (9 sets, daily range): BP systolic 143–177; BP diastolic 60–84
[2019-05-13] MEDS: CEFEPIME 1GM/NS 0.9% 50 ML 50 ML IV SCH ×2 (05:15→17:20)
--- NOTE | 2019-05-13 06:58 | NUR ---
Received patient resting in bed. No acute distress noted. Denies pain or discomfort at this time. Call light within reach. Bed in the lowest position.
[2019-05-13] MEDS: INSULIN LISPRO 100 UNIT/1 ML 3ML VIAL SQ SCH ×4 (07:30→21:00)
--- NOTE | 2019-05-13 07:30 | NUR ---
PATIENT STILL REFUSING ACCUCHECKS AND INSULIN.
[2019-05-13] MEDS: VANCOMYCIN 1GM/NS 250 ML 250 ML IV SCH (08:13)
--- NOTE | 2019-05-13 09:46 | Progress Note ---
DATE: SUBJECTIVE: The patient is a 68-year-old female, who came in with a right diabetic foot ulcer, status post debridement. The patient's wound is kept bandaged, has been opened. The patient is in no pain. No chest pain. No shortness of breath. No nausea, vomiting, or diarrhea. No constipation. No rectal bleeding and/or no hematochezia. The patient has an SCD on. PHYSICAL EXAMINATION: VITAL SIGNS: Temperature is 97.8, pulse of 89, respirations of 18, blood pressure is 147/77, pulse oximetry of 100%. HEENT: Normocephalic, atraumatic. Pupils are reactive to light and accommodation. CVS: S1, S2 normal. Regular rate and rhythm. ABDOMEN: Nontender, nondistended. EXTREMITIES: Right lower extremity is in bandage and good peripheral pulses. LABORATORY VALUES: White count yesterday's was 14,000, hemoglobin of 8.4, hematocrit of 26.4. Chemistries show a sodium of 132, potassium 4.4, BUN 24, creatinine 0.90. Glucoses have been trending high 140s to 208. MICROBIOLOGY: The patient's Gram stain showed Staph aureus, moderate, pending and also wound culture grew a combination of Staph aureus and E coli. The patient is currently on cefepime and vancomycin and the E coli Staph aureus is sensitive to vancomycin and the E. coli, sensitive to cefepime. ASSESSMENT AND PLAN: 1. Right foot cellulitis. 2. Diabetes mellitus. 3. Neuropathy. 4. Hypertension. 5. Hyperlipidemia. The patient and family recalcitrant to taking medications. Decision for them is to go home tomorrow, but this has been explained to the son in detail that the patient has a growth of Staph aureus and E coli in her wound and the decision was what we reconsidered, IV antibiotics given at home and also wound care at home. Further recommendation per clinical course, again of has been impressed on the patient and the family that it is important that she takes IV antibiotics and infection control is necessary with wound care. Further recommendation per clinical course. We will continue to monitor the patient. MD CRISTY Hercules/NEIL /[id number]
--- NOTE | 2019-05-13 16:33 | Progress Note ---
DATE: SUBJECTIVE: Ms. De Guzman is doing better. No new complaint. The patient is refusing to go to LTAC. She cannot afford outpatient IV antibiotic. She wants to go with oral antibiotic, even though she may lose her foot. I had another discussion with her today and the son at the bedside, he tried to explain it to her and she knows what she is doing. REVIEW OF SYSTEMS: HEENT: Negative. PULMONARY: Negative. CARDIAC: Negative. : Negative. PHYSICAL EXAMINATION: GENERAL: She is currently alert, oriented, does not seem to be in acute distress. VITAL SIGNS: Stable, currently afebrile. HEENT: She is not icteric. NECK: Supple. CHEST: Clear. HEART: S1, S2. No S3, S4 or murmur. ABDOMEN: Soft. Bowel sounds present. No tenderness. EXTREMITIES: No edema. SKIN: No rash. IMPRESSION: Osteomyelitis, diabetes mellitus. Continue with IV antibiotic. We probably will discharge her home tomorrow with doxycycline 100 mg p.o. b.i.d. and Cipro 500 mg p.o. b.i.d. for 6 weeks. Follow up as an outpatient. Wound care per Podiatry. Further recommendations to follow. MD GIA Pires/NEIL /[id number]
--- NOTE | 2019-05-13 19:21 | NUR ---
Report given to oncoming nurse. Walking rounds done. No acute distress noted. Denies pain or discomfort at this time. Call light within reach. Bed in the lowest position.
--- NOTE | 2019-05-13 20:00 | NUR ---
INITIAL ASSESSMENT COMPLETE, CALL LIGHT IN REACH, PT SPEAKS GREEK ONLY, DRESSING TO RIGHT FOOT INTACT, IV INFUSING, PT REFUSES ANY BLOOD SUGARS OR INSUILIN FOR IT, DOES NOT COMPLY WITH ALL ORDERS, TOLD TO CALL FOR HELP, PT DOES NOT WANT BED ALARM ON,
[2019-05-14] VITALS: BP 152/75
[2019-05-14 04:25] VITALS: BP 164/73
[2019-05-14] MEDS: SODIUM CHLORIDE 0.9% 1000ML 1,000 ML IV SCH (04:36)
[2019-05-14] MEDS: CEFEPIME 1GM/NS 0.9% 50 ML 50 ML IV SCH (05:27)
[2019-05-14 06:05] LABS: BASOPHILS # (AUTO) 0.1 (0.0-0.1); BASOPHILS % 0.6 % (0.0-1.0); EOSINOPHILS # (AUTO) 1.1 (0.0-0.4); EOSINOPHILS % 7.8 % (0.0-6.0); HEMATOCRIT 24.9 % (34.2-44.1); LYMPHOCYTES # (AUTO) 2.8 (1.0-3.2); LYMPHOCYTES % 19.9 % (18.0-39.1); MEAN CORPUSCULAR HEMOGLOBIN 24.7 pg (28-32); MEAN CORPUSCULAR HGB CONC 32.1 g/dL (31-35); MEAN CORPUSCULAR VOLUME 76.9 fL (81-99); MONOCYTES % 6.7 % (4.4-11.3); NEUTROPHILS # (AUTO) 9.2 (2.1-6.9); NEUTROPHILS % 64.4 % (38.7-80.0); PLATELET COUNT 417 x10e3/uL (140-360); RED BLOOD COUNT 3.24 x10e6/uL (3.6-5.1); RED CELL DISTRIBUTION WIDTH 14.1 % (11.7-14.4)
[2019-05-14 06:30] LABS: ALANINE AMINOTRANSFERASE 12 IU/L (0-55); ALBUMIN 2.4 g/dL (3.5-5.0); ALBUMIN/GLOBULIN RATIO 0.5 (0.8-2.0); ALKALINE PHOSPHATASE 94 IU/L (40-150); ANION GAP 13.7 mmol/L (8-16); BLOOD UREA NITROGEN 18 mg/dL (7-26); BUN/CREATININE RATIO 23 (6-25); CALCIUM 8.8 mg/dL (8.4-10.2); CARBON DIOXIDE 21 mmol/L (22-29); CHLORIDE 102 mmol/L (98-107); EST GLOMERULAR FILTRATION RATE > 60 ML/MIN (60-); GLUCOSE 166 mg/dL (74-118); POTASSIUM 3.7 mmol/L (3.5-5.1); SODIUM 133 mmol/L (136-145)
[2019-05-14] MEDS: INSULIN LISPRO 100 UNIT/1 ML 3ML VIAL SQ SCH ×2 (07:30→11:30)
--- NOTE | 2019-05-14 07:41 | Progress Note ---
DATE: SUBJECTIVE: The patient is a 68-year-old female, who comes in with diabetic foot ulcer on the right side. The patient is status post debridement and drainage of wound. Continues to be on IV antibiotics. The patient's microbiology grew Staph aureus and E. coli, sensitive to the antibiotic she is on; however, in discussion with the family and her, the patient wants to go home on p.o. antibiotics, wants to be discharged today because she does not feel any pain in the legs and wants to be treated at home with p.o. antibiotics. The patient and family pressed on the reason to get IV antibiotics, but refused and wants to go home. OBJECTIVE: VITAL SIGNS: Temperature is 98.9, pulse of 96, respirations of 19, blood pressure is 165/73. CVS: S1 and S2 normal. Regular rate and rhythm. ABDOMEN: Nausea, nondistended. EXTREMITIES: No clubbing. No cyanosis. Positive for good pulses. Right-sided ulceration bandaged. Dr. Patel is going to open up the wound today. LABORATORY VALUES: White count is 14,000, hemoglobin of 8.0, hematocrit of 24.9. Chemistries; sodium 133, potassium of 3.7, BUN and creatinine are normal. Toxicology, vancomycin trough is 11.3. ASSESSMENT: Again is right foot cellulitis, diabetic foot ulcer, neuropathy, history of hypertension, hyperlipidemia. Again, the patient and family do not want IV antibiotics, wants to go home today on p.o. antibiotics. We will discuss the case with the consultants including Dr. Patel and Dr. Wilson, and possible discharge probably against medical advice. Further recommendation per clinical course. We will continue to monitor the patient and discharge depending on consultants. MD CRISTY Hercules/NEIL /[id number]
[2019-05-14 07:58] VITALS: BP 166/75
[2019-05-14 08:00] VITALS: BP 166/75
[2019-05-14] MEDS: VANCOMYCIN 1GM/NS 250 ML 250 ML IV SCH (09:00)
--- NOTE | 2019-05-14 10:00 | NUR ---
Pt states that she wants to go home today. Pt wants to wait until infectious disease doctor come to see if he will give her a prescription for oral antibiotics. Pt states where he gives her a prescription or not she is still going home. Attending is aware of pt wanting to go home AMA.
[2019-05-14 11:26] VITALS: BP 172/76
--- NOTE | 2019-05-14 12:00 | NUR ---
Infectious disease was here and left prescriptions in chart and to follow up with them in two weeks.
--- NOTE | 2019-05-14 12:21 | NUR ---
EDUCATED ABOUT IMM, SIGNED, FILED IN CHART, WITH COPY LEFT WITH FAMILY AT BEDSIDE.
--- NOTE | 2019-05-14 13:00 | NUR ---
Spoke with Dr. Patel and let her know that pt is leaving AMA. Received orders to go ahead and do dressing change to right foot with wet to dry betadine dressing. Dr. Patel wants to see pt in office on Tuesday.
--- NOTE | 2019-05-14 14:00 | NUR ---
Pt left at this time AMA. Pt did sign AMA paperwork. Informed pt that Dr. Patel would like to see her in the office on tuesday and also that she should follow up with infectious disease in two weeks. Pt verbalized understanding of follow up appts.
== END 2019-05-14 14:31 | disposition left against medical advice (07) | DRG 629 ==
LOC: MED/SURG3 17:32
PROVIDERS: ADMIT Family Medicine; ATTEND Family Medicine
PROC: 0QBN0ZZ Excision of Right Metatarsal, Open Approach (ICD-10-PCS; 2019-05-11)
PROC: 0Y9M0ZX Drainage of Right Foot, Open Approach, Diagnostic (ICD-10-PCS; principal; 2019-05-11 07:00)
DX: E11.69 Type 2 diabetes mellitus with other specified complication (principal); M00.071 Staphylococcal arthritis, right ankle and foot; L03.115 Cellulitis of right lower limb; M86.8X7 Other osteomyelitis, ankle and foot; E11.621 Type 2 diabetes mellitus with foot ulcer; I12.9 Hypertensive chronic kidney disease with stage 1 through stage 4 chronic kidney disease, or unspecified chronic kidney disease; B95.61 Methicillin susceptible Staphylococcus aureus infection as the cause of diseases classified elsewhere; Z91.19 Patient's noncompliance with other medical treatment and regimen; E11.22 Type 2 diabetes mellitus with diabetic chronic kidney disease; N18.9 Chronic kidney disease, unspecified; D63.1 Anemia in chronic kidney disease; Z79.4 Long term (current) use of insulin; E11.51 Type 2 diabetes mellitus with diabetic peripheral angiopathy without gangrene
CPT/HCPCS: 36415; 71045; 80048; 80053; 80061; 80202; 82948; 83036; 84134; 85025; 85651; 87040; 87071; 87075; 87102; 87186; 87205; 87206; 93005; 93926; 97139; J0692; J2001; J2250; J2543; J3010; J3370; J7030; J7050

== ENCOUNTER → 2019-05-09 | Emergency (ER) | payer SELFPAY ==
[~2019-05-09] MED LIST: JANUMET 50-1,01 EACH PO
--- NOTE | 2019-05-09 16:47 | NUR ---
PATIENT PRESENTED TO ER WITH DIRECT ADMISSION ORDERS FROM DR GRANDA. NOTIFIED ALURA,PRACTICE DIRECTOR, BED WILL BE ASSIGNED.
--- OUTSIDE RECORDS SUMMARY | 2019-07-26 13:55 | XMS REPORT ---
Author [facility] Address Unknown Phone Unavailable Care Team Providers [facility] [employer] Dean Name Role Phone Marge RAMIREZ Unavailable Unavailable Problems This patient has no known problems. Allergies, Adverse Reactions, Alerts This patient has no known allergies or adverse reactions. Medications This patient has no known medications. Results Test Description Test Time Test Comments Text Results Atomic Results Result Comments MRI FOOT RIGHT WO 2019-05-10 14:40:00 [place] [address] Patient Name: JENNIE GUZMAN MR #: [id number] : 1950 Age/Sex: 68/F Req #: [id number] [facility] Physician: ELIZABETH RAMIREZ MD Ordered by: VANDANA GRANDA DPIrene Report #: [id number] Location: MED/SURG Room/Bed: [facility] Procedure: [id number] MRI/MRI FOOT RIGHT WO Exam Date: Exam Time: REPORT STATUS: Signed TECHNIQUE: Magnetic resonance imaging of the RIGHT foot was performed WITHOUT injected contrast. HISTORY: Pain COMPARISON: None available. DISCUSSION: Soft tissue ulceration of the level of the interphalangeal joint of the hallux and metatarsophalangeal joint of the hallux with ill-defined soft tissue abscess surrounding the adjacent osseous structures. Abscess extends over the proximal phalanx of the second toe. Bone marrow edema and T1 replacement throughout the phalanges of the hallux. Mild subcortical bone marrow edema involving the first and second metatarsals and second proximal phalanx. Generalized soft tissue swelling and edema of the foot. IMPRESSION: 2 regions of soft tissue ulceration with sinus tract and soft tissue abscess of the distal forefoot. Osteomyelitis of the phalanges of the hallux with interphalangeal joint septic arthritis. Probable osteomyelitis of the first and second metatarsal heads and second proximal phalanx. Signed by: Dr. Monico Rivas M.D. on 05/10/2019 2:45 PM Dictated By: MONICO RIVAS MD 1445 Transcribed By: NOVA on 05/10/19 1445 COPY TO: VANDANA GRANDA DPM CHEST SINGLE (PORTABLE) 2019-05-10 10:57:00 [place] [address] Patient Name: JENNIE GUZMAN MR #: [id number] : 1950 Age/Sex: 68/F Req #: [id number] Adm Physician: ELIZABETH RAMIREZ MD Ordered by: VANDANA GRANDA DPM Report #: [id number] Location: [facility] Room/Bed: [facility] Procedure: [id number] DX/CHEST SINGLE (PORTABLE) Exam Date: 05/10/19 Exam Time: 924 REPORT STATUS: Signed EXAMINATION: CHEST SINGLE (PORTABLE) INDICATION: Infection COMPARISON: None FINDINGS: LINES/TUBES:None LUNGS:The lungs are well-inflated. No focal consolidation or pulmonary edema. PLEURA:No pleural effusion or pneumothorax. MEDIASTINUM:The cardiomediastinal silhouette appears normal in size and shape. Atherosclerotic calcifications of the thoracic aorta. BONES/SOFT TISSUES:Degenerative/posttraumatic changes of the partially visualized left proximal humerus. ABDOMEN:No free air under the diaphragm. IMPRESSION: No focal pneumonia or pulmonary edema. Signed by: Yesika Lakhani MD on 05/10/2019 10:58 AM Dictated By: YESIKA LAKHANI MD 1058 Transcribed By: NOVA on 05/10/19 1058 COPY TO: VANDANA GRANDA DPM
--- OUTSIDE RECORDS SUMMARY | 2019-07-26 13:55 | XMS REPORT ---
Author Author Admin, [place] Organization [facility] Address [address] [place] [address] Phone Allergies, Adverse Reactions, Alerts Allergy Name Reaction Description Start Date Severity Status Provider No Known Allergies Jessica Hendrickson [employer] Conditions or Problems Problem Name Problem Code [...] by mouth twice a day AMOXICILLIN-POT CLAVULANATE 21474967737 Active Jose Cortés MD Active BACTRIM DS 800-160 MG ORAL TABLET 2 tab by mouth twice a day TRIMETHOPRIM-SULFAMETHOXAZOLE 05067290272 Active Jose Cortés MD Active JANUMET 50-1000 MG ORAL TABLET 1 tablet twice a day SITAGLIPTIN- METFORMIN HCL 09342370755 Active Jose Cortés MD Active Vital Signs [...] Comp. Metabolic Panel (14), ... - Chemistry albumin/globulin ratio, serum 0.9 1.2-2.2 creatinine, serum 0.91 mg/dL 0.57-1.00 cholesterol, serum 159 mg/dL 366-224 4201/08/03 creatinine, random, urine 76.3 mg/dL Not Estab. [...] - Chemistry potassium, serum 4.2 mmol/L 3.5-5.2 albumin, serum 3.7 g/dL 3.6-4.8 immature granulocytes, percentage of total cells, blood 0 % Not Estab. Lab Report: CBC With [...] Facility 11:11:41 CDT New Patient Detailed - 81101 Jose Cortés MD CPT-81549 [facility] Procedures Code Procedure Name Date Entry Date Standard Description CPT-24976 Xray - Foot - 3 Views - InHouse 09:46:56 CDT CPT-56769 HEMOGLOBIN A1C - In House 11:11:41 CDT CPT-76076 Finger Stick Glucose 11:11:41 CDT CPT-45733 Handling of specimen for transfer 11:11:41 CDT CPT-65059 Venipuncture 11:11:41 CDT
== END | disposition left against medical advice (07) ==
LOC: ER 16:25
DX: L97.519 Non-pressure chronic ulcer of other part of right foot with unspecified severity (principal)
CPT/HCPCS: 36415; 82948